=== PATIENT | female | born 1970 | race Caucasian/White ===

== ENCOUNTER 2022-05-28 05:40 | Day surgery (SDC) | payer OTHER ==
[~2022-05-28] VITALS: Ht 180.3 cm; Wt 167.7 kg
--- NOTE | ~2022-05-28 | OR ---
[facility] [address], [place] [address] Draft DATE OF OPERATION: 05/28/2022 SURGEON: Andreas Frye MD PREOPERATIVE DIAGNOSES: 1. Chronic frontal sinusitis. 2. Chronic ethmoiditis. 3. Chronic sphenoiditis. 4. Chronic maxillary sinusitis. 5. Persisting subacute infection. 6. Deviated nasal septum. 7. Sinus headaches. POSTOPERATIVE DIAGNOSES: 1. Chronic frontal sinusitis. 2. Chronic ethmoiditis. 3. Chronic sphenoiditis. 4. Chronic maxillary sinusitis. 5. Persisting subacute infection. 6. Deviated nasal septum. 7. Sinus headaches. PROCEDURES: 1. Bilateral endoscopic frontal ethmoidectomy, 92766-35. 2. Nasal septoplasty, 69599. 3. Bilateral endoscopic sphenoidotomy, 56985-17. 4. Right endoscopic maxillary antrostomy 40525, and then left maxillary sinusotomy, endoscopic with removal foreign body. INDICATIONS: This is a 52-year-old female, who has had years of sinus problems, sinus infections. CT scan was obtained, which showed the patient had a picture of pansinusitis, mainly left-sided, but also showing some infection in the posterior ethmoids on the right. Mainly, there was an apparent odontogenic sinus infection with classically infected tooth with a periapical cyst on the left upper quadrant. The patient had a tooth extraction; however, the infection has not subsided. The patient still has headaches and has been placed on antibiotic, it has been weak since her tooth was pulled. The gravity and concern are for the patient had a poorly drained frontal sinus, which was filled with pus when the CT scan was done and it is felt that needed to be opened up widely and also the maxillary sinus. This was done with an ethmoidectomy PATIENT NAME: MARI DYKES OPERATIVE REPORT DATE OF : 68 REPORT #: [id number] PHYSICIAN: ANDREAS FRYE MD PCP: JULIETH STONER REPORT IS CONFIDENTIAL AND NOT TO BE RELEASED WITHOUT AUTHORIZATION [facility] [address], [place] [address] Draft and the patient had a deviated septum with nasal obstruction part of the complex disease on the left side and needed to have that moved over, so that the procedures could take place and for the patient to breathe better. Because of medical failure and the gravity of the situation, surgery was indicated. DESCRIPTION OF PROCEDURE: The patient was placed in supine position, had an orotracheal intubation, was placed under general anesthesia. The right side being more open because of the septum was approached first. The inferior aspect of the middle turbinate was injected with 1.5 mL of 1% lidocaine with 1:100,000 epinephrine and the uncinate process as well little bit. The anterior and inferior portion of middle turbinate was trimmed away with microdebrider and Kerrison forceps and cauterized with a little Pumper present anteriorly on the turbinate, this stopped it promptly. A sickle knife was used to incise the uncinate process, then the backbiter and a Thru-Cut ethmoid punch were used to remove it entirely. The maxillary ostium widened. No pus was present in the sinus. The ethmoid bulla had quite diseased mucosa, very hypoplastic, it was opened with a curette, then going from air cell to air cell, anterior to posterior. Each air cell was entered removing the inner sinus septation with a Thru-Cut punch, the microdebrider, and the Kerrison forceps. A transethmoid sphenoidotomy was made into the right sinus. Also, a lot of mucopus suggest old mucus was aspirated out of those posterior ethmoid air cells. A piece of Nasopore with a little bit of mupirocin ointment was placed into the sinus labyrinth to help prevention of the lateralization of the raw surfaces with middle turbinate in lateral wall. The septum was then repaired. The septum was injected with about 6 mL of 1% lidocaine with 1:100,000 epinephrine utilizing hydrodissection to lift up the mucosa based on the left side. The incision was made and lifting up the mucoperichondrium with the caudal dissection to both sharp and dull end. The mucoperiosteal was further elevated and then the [place] D knife used to incise that cartilage to open up the other space, where the mucoperichondrium and mucoperiosteal was dissected off the septum. The septal deviation was mainly bony both superiorly, inferiorly, and the Nuno scissors were used to cut this inferiorly was used with the mallet to remove that crest to now make the membranous septum perfectly straight. These flaps were based together with 4-0, chromic. The anterior incision closed with 4-0 catgut. With the left airway opened, an another bit of Marcaine was placed in the septal flaps, but only Marcaine 2 mL were used on the septum. Another 2 mL of lidocaine injected into the left anterior edge of the middle turbinates and the ethmoid bulla and the uncinate process. Then, the same as the right side, the anterior-inferior portion of middle turbinate was trimmed away. The Pumper was cauterized, was found just less than a centimeter of the middle turbinate anteriorly was removed. The uncinate process removed same way as the right side and the maxillary ostium already quite wide once the ostium of the uncinate process was removed, almost it looked like a tooth or foreign body sticking out into the ostium. It turned out to be more of a fungus ball or inspissated chronic inflammatory tissue old pus, which was hard PATIENT NAME: MARI DYKES OPERATIVE REPORT DATE OF : [birth year] REPORT #: [id number] PHYSICIAN: ANDREAS FRYE MD PCP: JULIETH STONER REPORT IS CONFIDENTIAL AND NOT TO BE RELEASED WITHOUT AUTHORIZATION [facility] [address], [place] [address] Draft and almost like the consistency of . This was removed entirely, some of them was sent for pathology for examination. A retention cyst also was found on that lateral wall and was simply removed with the frontal sinus sagittal grasping forceps. No more debris was in the maxillary sinus and then the ethmoidectomy was performed same as the right side. A transethmoid sphenoidotomy was done removing the rostrum with Kerrison forceps and up to the ceiling, then switching to a 70-degree scope, the base of skull was dissected out and the frontal sinus, which was tightly closed off the inflammatory tissue and with a very small bony apertures between neighboring ethmoid air cells, these were removed with Kerrison frontal sinus punch and widely opened, maybe 100 times bigger than nature gave her. No pus was present in the frontal sinus. Another piece of nasal pore was placed on that side with some mupirocin. ESTIMATED BLOOD LOSS: 350 mL. COMPLICATIONS: No complications. DISPOSITION: The patient went to Recovery in good condition. MD NAMRATA Leavitt/CYRUS /[id number] Copies: ~ PATIENT NAME: MARI DYKES OPERATIVE REPORT DATE OF : 68 REPORT #: [id number] PHYSICIAN: ANDREAS FRYE MD PCP: JULIETH STONER REPORT IS CONFIDENTIAL AND NOT TO BE RELEASED WITHOUT AUTHORIZATION
[~2022-05-28 05:40] MED LIST: AMOX TR-K CLV1 EAC1 PO; FISH OIL 1,0001 EAC9 PO; HYDROCHLOROTH12.5 MG PO; OSTERA TABLET1 EACH PO; ZESTRIL20 MG PO
--- NOTE | 2022-05-28 07:25 | NUR ---
LESLIE SPAYED TO BILAT NOSTRILS AT 0715 AND 0724
--- NOTE | 2022-05-28 10:46 | NUR ---
05/28/22 1046 Harleen Robles 1034 PATIENT ARRIVES TO PACU UNRESPONSIVE TO PAIN. ORAL AIRWAY IN PLACE. ALSO REQUIRES JAW THRUST TO MAINTAIN PATENT AIRWAY. RESP EVEN AND UNLABORED WITH INTERVENTION, MASK AT 9 LITERS. 1041 PATIENT MOANING. ORAL AIRWAY REMOVED. MASK CONTINUES AT 9 LITERS. 1045 PATIENT AWAKE OFF/ON, BUT CONFUSED. REORIENTED TO PACU. ENCOURAGED TO COUGH AND DEEP BREATHE, MASK CONTINUES AT 9 LITERS.
--- NOTE | 2022-05-28 11:55 | NUR ---
PT BACK TO DS ALERT AND AWAKE, SHE CAME IN ON 2L O2 TOOK HER OFF O2 SHE IS SATING ABOVE 95% ON ROOM AIR
--- NOTE | 2022-05-28 12:00 | NUR ---
PT TAKING SIPS OF WATER TOLERATES WELL.
--- NOTE | 2022-05-28 12:01 | NUR ---
PT REPORTS PAIN 2/10 AND TOLERABLE
--- NOTE | 2022-05-28 13:11 | NUR ---
1215 PT AWAKE AND ALERT PRATEEK PAIN OR NAUSEA. PT EATING JELLO AND DRINKING WATER TOLERATES WELL. PT ASKING ABOUT WHEN SHE CAN GO HOME.
--- NOTE | 2022-05-28 13:12 | NUR ---
1245 PT CONTINUES TO REST COMFORTABLE HER SISTER IS AT BEDSIDE. DISCHARGE INSTRUCTIONS GIVEN TO PT SHE VOICED UNDERSTANDING. SHE IS ABLE TO DRESS HERSELF. DRESSING UNDER NOSTRILS HAS BEEN CLEAN AND DRY.
--- NOTE | 2022-06-03 12:17 | PATH ---
[facility] [address], [place] [address] Signed SPECIMEN(S): A FOREIGN BODY MAXILLARY LT SINUS SPECIMEN SOURCE: A. FOREIGN BODY MAXILLARY LT SINUS CLINICAL HISTORY: Chronic and acute pain; sinusitis FINAL PATHOLOGIC DIAGNOSIS: Foreign body maxillary left sinus: - Focally calcified fungus ball. - A PAS with diastase stain highlights abundant fungal organisms, including hyphae and spores. JVR:[facility]:C2NR MICROSCOPIC EXAMINATION: Histologic sections of all submitted blocks are examined by light microscopy. These findings, together with the gross examination, support the pathologic diagnosis. I PAS with diastase stain is performed with appropriate controls on block (A1) and is positive in the area of concern, supporting the diagnosis. JVR:[facility] GROSS DESCRIPTION: The specimen, labeled "NS, foreign body, maxillary left sinus," is received in formalin and consists of two fragments of mendez soft tissue measuring 0.5 to 1.2 cm in greatest dimension. The larger fragment is longitudinally bisected. Entirely submitted in cassette A1. HH (under the direct supervision of a pathologist) The Gross Description was prepared using a voice recognition system. The report was reviewed for accuracy; however, sound-alike word errors, addition and/or deletions may occur. If there is any question about this report, please contact Client Services. PERFORMING LABORATORY: The technical component was performed by [facility], [address] [place] [id number] (CLIA# [id number]). Professional interpretation was performed by [facility] - [facility], [address] [place] [id number] (CLIA#: [id number]). Diagnostician: Storm Weiss MD PATIENT NAME: MARI DYKES PATHOLOGY DATE OF : 68 REPORT #: [id number] PHYSICIAN: [facility] PCP: JULIETH STONER REPORT IS CONFIDENTIAL AND NOT TO BE RELEASED WITHOUT AUTHORIZATION [address] [address] Signed Pathologist Electronically Signed 06/03/2022 Copies: ~ PATIENT NAME: MARI DYKES PATHOLOGY DATE OF : 68 REPORT #: [id number] PHYSICIAN: [facility] PCP: JULIETH STONER REPORT IS CONFIDENTIAL AND NOT TO BE RELEASED WITHOUT AUTHORIZATION
== END 2022-05-28 13:00 | disposition home or self-care (01) ==
LOC: DS 05:40
PROVIDERS: ATTEND Otolaryngology
PROC: 09SM0ZZ Reposition Nasal Septum, Open Approach (ICD-10-PCS; 2022-05-28)
PROC: 09TU8ZZ Resection of Right Ethmoid Sinus, Via Natural or Artificial Opening Endoscopic (ICD-10-PCS; 2022-05-28)
PROC: 09CX8ZZ Extirpation of Matter from Left Sphenoid Sinus, Via Natural or Artificial Opening Endoscopic (ICD-10-PCS; 2022-05-28)
PROC: 09CW8ZZ Extirpation of Matter from Right Sphenoid Sinus, Via Natural or Artificial Opening Endoscopic (ICD-10-PCS; 2022-05-28)
PROC: 099R8ZZ Drainage of Left Maxillary Sinus, Via Natural or Artificial Opening Endoscopic (ICD-10-PCS; 2022-05-28)
PROC: 099Q8ZZ Drainage of Right Maxillary Sinus, Via Natural or Artificial Opening Endoscopic (ICD-10-PCS; 2022-05-28)
PROC: 09BT8ZZ Excision of Left Frontal Sinus, Via Natural or Artificial Opening Endoscopic (ICD-10-PCS; 2022-05-28)
PROC: 09BS8ZZ Excision of Right Frontal Sinus, Via Natural or Artificial Opening Endoscopic (ICD-10-PCS; 2022-05-28)
PROC: 09TV8ZZ Resection of Left Ethmoid Sinus, Via Natural or Artificial Opening Endoscopic (ICD-10-PCS; principal; 2022-05-28 07:30)
DX: J32.1 Chronic frontal sinusitis (principal); J32.2 Chronic ethmoidal sinusitis; J32.3 Chronic sphenoidal sinusitis; J32.0 Chronic maxillary sinusitis; J34.2 Deviated nasal septum
CPT/HCPCS: J0131; J0330; J1100; J2250; J2405; J2704; J3010; J7030; J7121

== ENCOUNTER 2022-07-01 14:45 | Day surgery (SDC) | payer OTHER ==
--- NOTE | ~2022-07-01 | OR ---
[facility] [address], [place] [address] Draft DATE OF OPERATION: 07/01/2022 SURGEON: Andreas Meek MD PREOPERATIVE DIAGNOSIS: Nasal septal hematoma versus abscess. POSTOPERATIVE DIAGNOSIS: Nasal septal abscess. PROCEDURES: 1. Incision and drainage of nasal septal abscess. 2. Endoscopic examination of sinuses with debridement. INDICATIONS: This 52-year-old female had surgery on her sinuses and a septoplasty four weeks ago. When she presented to the office two weeks after surgery, the endoscopic exam was normal with no sign of infection at that time and her chronic left maxillary sinus infection was clearing up nicely. The patient then came in for routine visit on her 4th week saying that she could not breathe through her nose. On examination, the nasal septum was filling up both nostrils and endoscope could not be passed to either side. A tentative diagnosis of a hematoma versus abscess was made and immediate drainage was indicated to preserve the nasal septum. The patient was afebrile, had really no symptoms except could not breathe through her nose. No tenderness or swelling was noted, so the patient was brought to the operating room after the endotracheal intubation, a little bit of lidocaine was placed into the previous incision, which is on the left side and that seemed to be the most fluctuant area. An incision was made basically opening the old incision, immediately pus filled the field. Cultures were sent and presumed Staph aureus being the usual organism. It was suctioned out and irrigated with 20 mL of saline and then some clindamycin placed into the nasal septal cavity. The abscess appeared to stop because of no swelling or fluctuance approximately 2 cm into the nose, perhaps 2.5, but the basically the flaps that had been elevated where the bony work was done in the posterior to the cartilage, cartilaginous septum had fused. No abscess was present there. The endoscopic exam of sinuses was seen. There were only a couple of filmy bands across the opening of the right frontal sinus, these were cut with a forceps, but not all eight sinuses were wide open, healing fine with no sign of infection or pus in the left maxillary sinus, which was the most infected because of the chronically bad tooth with a tooth abscess, was looked amazingly good. Photographs were taken. Then, a basting stitch to collapse the abscess cavity was done posteriorly, perhaps 6 basting sutures. Then, a rubber band drain was placed into the PATIENT NAME: MARI DYKES OPERATIVE REPORT DATE OF : 68 REPORT #: [id number] PHYSICIAN: ANDREAS MEEK MD PCP: JULIETH STONER REPORT IS CONFIDENTIAL AND NOT TO BE RELEASED WITHOUT AUTHORIZATION [facility] [address] [place], [place] [address] Draft incision to help keep drainage coming out, should that be required, and again a little bit of clindamycin placed into the nose. The patient will be put on Augmentin postoperatively without any irrigations. She will also put mupirocin ointment into the nostril on the left side. Estimated blood loss was less than 5 mL. Andreas Meek MD [facility]/VANDANAL /[id number] Copies: ~ PATIENT NAME: MARI DYKES OPERATIVE REPORT DATE OF : 68 REPORT #: [id number] PHYSICIAN: ANDREAS MEEK MD PCP: JULIETH STONER REPORT IS CONFIDENTIAL AND NOT TO BE RELEASED WITHOUT AUTHORIZATION
--- NOTE | 2022-07-01 16:21 | NUR ---
dr painting in to see pt. barrel roller has been in.
--- NOTE | 2022-07-01 17:53 | NUR ---
07/01/22 1753 Tegan Sainz 1735 PT ARRIVED TO PACU WITH ORAL AIRWAY IN PLACE AND ON 15L VIA MASK, JAW THRUST USED OFF AND ON TO MAINTAIN AIRWAY. 1738 PT WOKE TO TACTILE STIMULI AND STARTS COUGHING ORAL AIRWAY REMOVED. SMALL AMOUNT OF BRIGHT RED SPUTUM WITH CLOTS NOTED. PT MAINTAINING HER OWN AIRWAY. 174 O2 DECREASED TO 10L VIA MASK, AT BEDSIDE TALKING TO PT. PT REACTIVE TO VERBAL STIMULI AND EYES REMAIN CLOSED. 174 PT COUGHING AND SUCTION USED, SCANT AMOUNT OF RED SPUTUM NOTED. PT MOVED HERSELF UP IN BED. DEEP BREATHING AND COUGHING ENCOURGED. 1747 O2 REMOVED, PT RATES PAIN 4/10 PAIN AND TOLERABLE AT THIS TIME "ABOUT THE SAME BEFORE." 1752 PT DENIES NAUSEA AND RESTING IN BED WITH EYES CLOSED, O2 SAT 92-94%.
--- NOTE | 2022-07-01 18:37 | NUR ---
PT. ARRIVED VIA STRETCHER FROM PACU. ALERT AND ORINETED TO ALL. GAUZE DRESSING INTACT WITH SMALL AMOUNT OF BLOODY DRAINAGE. SHE REPORTS MILD TOLERABLE PAIN. TOLERATING SIPS OF WATER AND JELLO. ON ROOM AIR AND VITALS STABLE. DISCUSSED SAFETY AND PAIN MANAGEMENT. LEFT RESTING IN HIGH FOWLERS WITH CALL LIGHT IN REACH.
--- NOTE | 2022-07-01 19:40 | NUR ---
IN TO ASSIST PT TO THE TOILET, VOIDED, PT PUT CLOTHES ON, VS TAKEN, PT UP TO THE CHAIR AWAITING DC FROM RN
== END 2022-07-01 20:06 | disposition home or self-care (01) ==
LOC: DS 14:45 → MS 17:30 → DS 20:06
PROVIDERS: ATTEND Otolaryngology
PROC: 099M0ZZ Drainage of Nasal Septum, Open Approach (ICD-10-PCS; principal; 2022-07-01 17:00)
DX: J34.0 Abscess, furuncle and carbuncle of nose (principal); I10 Essential (primary) hypertension; Z79.899 Other long term (current) drug therapy
CPT/HCPCS: 36415; 80048; J0131; J0330; J1100; J1885; J2250; J2405; J2704; J2765; J3010; J7121